=== PATIENT | female | born 1965 | race Caucasian/White ===

== ENCOUNTER 2016-05-19 21:40 | Inpatient (IN) | payer BC ==
[~2016-05-19] VITALS: Ht 165.1 cm; Wt 129.3 kg
[2016-05-19] MEDS: CitaloPRAM (CeleXA) 20 MG TAB PO SCH (21:00)
[2016-05-19] MEDS ORDERED: FENO150C PO (21:58)
[2016-05-19] MEDS ORDERED: LEVO175T2 PO (21:58)
[2016-05-19] MEDS ORDERED: CITA20TA4 PO (21:58)
[2016-05-19] MEDS ORDERED: NS 1,000 ML IV ONE ×2 (22:15→23:45)
[2016-05-19] MEDS ORDERED: ONDANSETRON 4MG/2ML VIAL (J2405) IV ONE (22:15)
[2016-05-19 22:53] LABS: BASO % 0.2 % (0.0-1.0); EOS # 0.2 K/mm3 (0.0-0.50); EOS % 2.6 % (0.0-3.0); LARGE UNSTAINED CELL # 0.1 K/mm3 (0.0-0.4); LARGE UNSTAINED CELL % 1.1 % (0.0-4.0); LYMPH # 0.5 K/mm3 (1.5-4.5); LYMPH % 4.2 % (24.0-44.0); MEAN CORPUSCULAR HGB CONC 34.3 g/dl (32.0-36.5); MEAN CORPUSCULAR VOLUME 90.5 fl (80.0-96.0); MONO # 0.2 K/mm3 (0.0-0.8); NEUTROPHILS # 8.4 K/mm3 (1.8-7.7); PLATELET COUNT, AUTOMATED 299 k/mm3 (150-450); RED CELL DISTRIBUTION WIDTH 13.5 % (11.5-14.5); WHITE BLOOD COUNT 9.3 K/mm3 (4.0-10.0)
[2016-05-19 23:08] LABS: ALBUMIN 3.9 GM/DL (3.2-5.2); ALBUMIN/GLOBULIN RATIO 0.95 (1.00-1.93); ALKALINE PHOSPHATASE 60 U/L (45-117); ALT/SGPT 47 U/L (12-78); ANION GAP 13 MEQ/L (8-16); AST/SGOT 59 U/L (15-37); BILIRUBIN,DIRECT 0.1 MG/DL (0.0-0.2); BILIRUBIN,TOTAL 0.6 MG/DL (0.2-1.0); BLOOD UREA NITROGEN 14 MG/DL (7-18); CALCIUM LEVEL 8.6 MG/DL (8.5-10.1); CARBON DIOXIDE LEVEL 21 MEQ/L (21-32); CHLORIDE LEVEL 109 MEQ/L (98-107); GLOMERULAR FILTRATION RATE > 60.0 (>51); GLUCOSE, FASTING 151 MG/DL (70-105); SODIUM LEVEL 143 MEQ/L (136-145)
[2016-05-20] MEDS ORDERED: ACETAMINOPHEN TAB 650MG DOSE (2X325MG) PO PRN (03:00)
[2016-05-20] MEDS ORDERED: ONDANSETRON 4MG/2ML VIAL (J2405) IV PRN (03:00)
--- NOTE | 2016-05-20 06:03 | HPEPDOC ---
General Date of Admission May 20, 2016 at 03:39 Other Providers Primary care provider: Akil Madison Attending Physician: OLLIE LYNNE MD Chief Complaint The patient is a 51-year-old female admitted with a reason for visit of Dehydration/Gastroenteritis Due To Norovirus. Source: Patient, RN notes reviewed Timing/Duration: This afternoon Severity: Moderate Associated Symptoms: Weakness, Dizziness History of Present Illness Ms. Barajas is a 51-year-old female who presents to [facility]'s emergency Department with vomiting and diarrhea. Past medical history significant for hypothyroidism and anxiety. Patient states that the vomiting and diarrhea began at 3 PM this afternoon. She has vomited 5 times and states that it is liquid and yellow in color. She does not note any blood. She states she has had at least 8 episodes of diarrhea that is yellow in color, watery, nonbloody, and mucoid. She denies night sweats or chills. She states that she feels warm, but has been told that she does not have a fever. She admits to diffuse crampy abdominal pain. Admits to nausea. Admits to decreased fluid intake secondary to persistent vomiting. States that it is difficult to breathe, but only when she is vomiting. Admits to one episode of feeling dizzy with acute vision loss while sitting on the toilet. Denies loss of consciousness or hitting her head. States that she did not fall. Admits to lightheadedness and weakness. States that at the end of April she developed chest congestion, cough, sinus pain and pressure and presented to her primary care provider who initially started her on a Z-Enio. States that symptoms did not improve and was subsequently switched to doxycycline with prednisone. States that she completed that regimen on and has yet to start the second round of prednisone with doxycycline. Patient denies headache, night sweats, chills, blurry vision, diplopia, tinnitus , acute hearing loss, sore throat, chest pain, palpitations, numbness and/or tingling, swelling, changes to urination (including dysuria, frequency, urgency , hematuria). Hospitalist service was consulted and patient was subsequently admitted for further medical management. Home Medications Scheduled (Fenofibrate) 150 Mg Cap 160 MG PO QHS (Reported) Citalopram Hydrobromide (Citalopram Hydrobromide) 20 Mg Tab 20 MG PO QHS ( Reported) Levothyroxine Sodium (Synthroid) 175 Mcg Tab 175 MCG PO QAM (Reported) Allergies Coded Allergies: Amoxicillin (Verified Allergy, Unknown, rash, 05/19/16) Clavulanic Acid (Verified Allergy, Unknown, rash, 05/19/16) Penicillins (Verified Allergy, Unknown, rash, 05/19/16) Past Medical History Medical History 1. Hypothyroidism 2. Anxiety Surgical History 1. Appendectomy, 1985 2. D&C, 1994 3. 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 Dyspnea Gastrointestinal: Reports: Abdominal Pain (diffuse, crampy), Diarrhea (8 episodes, yellow, watery, mucoid, nonbloody), Nausea, Vomiting (5 episodes, liquid, yellow), Denies: Constipation, Hematochezia, Melena Genitourinary: Denies: Dysuria, Frequency, Hematuria, Incontinence Hematologic: Denies: Bruising, Petecchia, Purpura Musculoskeletal: Denies: Back Pain, Joint Pain, Muscle Pain Neurological: Reports: Weakness, Denies: Confusion, Numbness Physical Examination General Exam: Positive: Alert, Cooperative, No Acute Distress Eye Exam: Positive: Conjunctiva & lids normal, EOMI, PERRLA, Negative: Ptosis, Sclera icteric ENT Exam: Positive: Atraumatic, Nares Patent, Pharynx Normal, Tongue Midline, Negative: Mucous membr. moist/pink (lips and mucous membranes are dry), Pharyngeal Edema Neck Exam: Positive: JVD, Other (trachea is midline), Supple, Negative: Lymphadenopathy, thyromegaly Chest Exam: Positive: Clear to auscultation, Normal air movement Heart Exam: Positive: Normal S1, Normal S2, Rate Normal, Regular Rhythm, Negative: Murmurs, Rubs Abdomen Exam: Positive: BS Hypoactive, Soft, Negative: Hepatospenomegaly, Mass, Tenderness Extremity Exam: Positive: Normal pulses, Negative: Clubbing, Cyanosis, Edema, Swelling, Tenderness Skin Exam: Positive: Nl turgor and temperature, Negative: Lesion, Rash Neuro Exam: Positive: Cranial Nerves 3-12 NL, Normal Gait, Normal Speech, Strength at 5/5 X4 ext Psych Exam: Positive: Anxiety (appears anxious) Other physical findings Digital rectal exam: External anal area appears without lesion, or excoriation, without visible hemorrhoids; rectal tone adequate; blind finger sweep reveals no acute abnormalities, lesions, retained stool Fecal occult stool test: Positive Vital Signs T 98.7 HR 118 RR 17 BP 149/85 O2 97% RA Height (in): 65 Weight (kg): 129.274 BMI (kg): 47.4 Laboratory Data Labs 24H Laboratory Tests 2 05/19/16 22:38: Aspartate Amino Transf (AST/SGOT) 59H, Alanine Aminotransferase (ALT/SGPT) 47, Alkaline Phosphatase 60, Total Bilirubin 0.6, Direct Bilirubin 0.1, Albumin 3.9 , Albumin/Globulin Ratio 0.95L, Anion Gap 13, White Blood Count 9.3, Red Blood Count 4.73, Hemoglobin 14.7, Hematocrit 42.8, Mean Corpuscular Volume 90.5, Mean Corpuscular Hemoglobin 31.0, Mean Corpuscular Hemoglobin Concent 34.3, Red Cell Distribution Width 13.5, Platelet Count 299, Neutrophils (%) (Auto) 90.0H, Lymphocytes (%) (Auto) 4.2L, Monocytes (%) (Auto) 2.0, Eosinophils (%) (Auto) 2.6, Basophils (%) (Auto) 0.2, Neutrophils # (Auto) 8.4H, Lymphocytes # (Auto) 0.5L, Monocytes # (Auto) 0.2, Eosinophils # (Auto) 0.2, Basophils # (Auto) 0.0, Calcium Level 8.6, Glomerular Filtration Rate > 60.0, Lactic Acid (Sepsis) 2.6*H , Large Unclassified Cells # 0.1, Large Unclassified Cells % 1.1, Lipase 99, Total Protein 8.0 CBC/BMP Laboratory Tests 05/19/16 22:38 Red Blood Count 4.73, Mean Corpuscular Volume 90.5, Mean Corpuscular Hemoglobin 31.0, Mean Corpuscular Hemoglobin Concent 34.3, Red Cell Distribution Width 13.5 , Neutrophils (%) (Auto) 90.0 H, Lymphocytes (%) (Auto) 4.2 L, Monocytes (%) ( Auto) 2.0, Eosinophils (%) (Auto) 2.6, Basophils (%) (Auto) 0.2, Neutrophils # ( Auto) 8.4 H, Lymphocytes # (Auto) 0.5 L, Monocytes # (Auto) 0.2, Eosinophils # ( Auto) 0.2, Basophils # (Auto) 0.0 Microbiology Microbiology 05/20/16 Gastrointestinal Tract Panel (PCR) - Final, Complete Norovirus RAD Interpretation STUDY: abdominal x-ray Assessment/Plan This is a 51-year-old female who presents with vomiting and diarrhea secondary to confirmed Norovirus on GI panel. Problems (1) Gastroenteritis due to norovirus Status: Acute Problem Text: GI panel positive for norovirus Nothing by mouth Intravenous fluid resuscitation 100 mLs per hour Zofran for nausea Tylenol for pain Monitor BMP (2) Tachycardia Status: Acute Problem Text: Heart rate of 118 Obtain EKG (3) Positive occult stool blood test Status: Acute Problem Text: Bedside digital rectal exam revealed stool occult blood positive Can consider outpatient colonoscopy Monitor with CBC (4) Lactic acidosis Status: Acute Problem Text: Lactic acid level 2.6 Obtain follow-up lactic acid Plan / VTE VTE Prophylaxis Ordered?: Yes (TEDs and sequentials) Plan Plan Gastroenteritis secondary to an norovirus Patient is be having diarrhea and vomiting since 3 PM Saturday afternoon. Patient's GI panel confirmed norovirus. Have initiated intravenous fluid resuscitation 100 mLs per hour. Made patient nothing by mouth. Provided Zofran as needed for nausea. Tylenol provided for pain. Monitor BMP. Tachycardia Patient's heart rate has ranged anywhere between 118-150. Will obtain EKG. Patient does not complain of chest pain, palpitations. Could likely be secondary to patient's persistent vomiting and diarrhea. Monitor with vital signs. Lactic acidosis Patient's lactic acid at time of presentation was 2.6. Likely secondary to patient's ongoing gastrointestinal pathology. We'll resuscitate with intravenous fluids at 100 mLs per hour. Obtain follow-up lactic acid level. Positive stool occult Bedside digital rectal exam revealed positive stool occult. Patient did not complain of any melena or hematochezia. Monitor with daily CBC. Patient is not currently anemic. H&H is 14.7 42.8, respectively. Could consider outpatient colonoscopy. DVT prophylaxis: TEDs and sequentials Diet: Nothing by mouth Disposition Admit to the progressive care unit Anticipated hospitalization: 2 nights Attending: Dr. Ruiz IVF: Initiate (normal saline at 100 mL per hour) Diet: Make NPO Activity: Continue Current (activity as tolerated) Diagnostics: Check Labs, Repeat Labs in AM, EKG Anticipated Discharge: Home RICKY AMARO May 20, 2016 06:02
[2016-05-20] MEDS: CitaloPRAM (CeleXA) 20 MG TAB PO SCH ×2 (06:13→10:24)
[2016-05-20] MEDS: NS 1,000 ML IV SCH ×3 (06:13→23:07)
[2016-05-20] MEDS: LEVOTHYROXINE 0.075 MG TAB (75 MCG) PO SCH (06:13)
[2016-05-20] MEDS: LEVOTHYROXINE 0.1 MG TAB (100 MCG) PO SCH (06:13)
[2016-05-20 08:00] VITALS: BP 131/63
--- NOTE | 2016-05-20 09:36 | REP ---
Abdomen series: Three views. History: Diffuse abdominal pain. Vomiting and diarrhea. Findings: Upright chest radiograph shows EKG monitoring electrodes. Lungs are clear. No infiltrate or free subdiaphragmatic air is seen. Heart is not enlarged. Supine and erect views of the abdomen show a normal bowel gas pattern. No mass, organomegaly, or pathologic calcification is seen. Impression: Negative abdominal series. Signed by Lonnie Do MD 05/20/2016 09:55 A
[2016-05-20 12:00] VITALS: BP 140/83
[2016-05-20 12:40] VITALS: BP 177/92
[2016-05-20 14:00] VITALS: BP 174/90
--- NOTE | 2016-05-20 15:12 | ECGEPIP ---
Stationary ECG Study [facility] Test Date: 2016-05-20 Pat Name: ANA M MARTINEZ Department: Room: 01[facility] Gender: F Director Dance: david : 1965 Requested By: RICKY YOUNG Order Number: [id number] Reading MD: Malachi Alicia Measurements Intervals [place] Rate: 112 P: 36 NE: 163 QRS: 4 QRSD: 86 T: 32 QT: 318 QTc: 435 Interpretive Statements SINUS TACHYCARDIA NONSPECIFIC ST & T-WAVE ABNORMALITY ABNORMAL RHYTHM ECG No prior tracing for comparison Clinical correlation advised Electronically Signed On 05-20-2016 15:11:48 EDT by Malachi Alicia
[2016-05-20 22:00] VITALS: BP 141/71
[2016-05-21] MEDS: LEVOTHYROXINE 0.1 MG TAB (100 MCG) PO SCH (05:36)
[2016-05-21] MEDS: LEVOTHYROXINE 0.075 MG TAB (75 MCG) PO SCH (05:36)
[2016-05-21 06:00] VITALS: BP 152/73
[2016-05-21 06:52] LABS: MEAN CORPUSCULAR HEMOGLOBIN 31.9 pg (27.0-33.0); MEAN CORPUSCULAR HGB CONC 34.8 g/dl (32.0-36.5); MEAN CORPUSCULAR VOLUME 91.5 fl (80.0-96.0); RED CELL DISTRIBUTION WIDTH 13.7 % (11.5-14.5); WHITE BLOOD COUNT 3.2 K/mm3 (4.0-10.0)
[2016-05-21 07:03] LABS: ANION GAP 7 MEQ/L (8-16); BLOOD UREA NITROGEN 8 MG/DL (7-18); CALCIUM LEVEL 7.1 MG/DL (8.5-10.1); CARBON DIOXIDE LEVEL 25 MEQ/L (21-32); CHLORIDE LEVEL 113 MEQ/L (98-107); CREATININE FOR GFR 0.52 MG/DL (0.55-1.02); GLOMERULAR FILTRATION RATE > 60.0 (>51); GLUCOSE, FASTING 116 MG/DL (70-105); POTASSIUM SERUM 3.3 MEQ/L (3.5-5.1); SODIUM LEVEL 145 MEQ/L (136-145)
[2016-05-21] MEDS: NS 1,000 ML IV SCH (09:11)
[2016-05-21] MEDS ORDERED: POTASSIUM CHLORIDE 10 MEQ SR TABLET PO ONE (10:45)
[2016-05-21 11:11] LABS: MAGNESIUM LEVEL 1.7 MG/DL (1.8-2.4)
[2016-05-21] MEDS ORDERED: MAG SULF 1GM/100ML (MAG RUN) 1 GM in APPROPRIATE DILUENT 1 EA IV ONE (11:30)
--- NOTE | 2016-05-24 13:02 | DSES ---
DATE OF ADMISSION: 05/20/2016 DATE OF DISCHARGE: 05/21/2016 REASON FOR ADMISSION: Dehydration, gastroenteritis. FINAL DIAGNOSES: 1. Norovirus. 2. History of hypothyroidism. 3. History of anxiety. 4. Hypokalemia. 5. Hypomagnesemia. HISTORY OF PRESENT ILLNESS: The patient is a 51-year-old female, presented to the emergency room complaining of nausea, vomiting, and diarrhea. She stated she had five episodes of vomiting liquid in color, nonbloody. She also had episodes of diarrhea, nonbloody, watery mucoid. Denied any fevers or chills. She stated she did have some lightheadedness and weakness. She did admit to increased fluid intake secondary to persistent vomiting. HOSPITAL COURSE: The patient was admitted. A gastrointestinal (GI) panel was ordered, and she was found to have norovirus. The patient was admitted for 24-48 hours. She was started on intravenous (IV) fluids for dehydration. Electrolytes were replaced, her potassium and magnesium. Once the patient's symptoms had resolved, she was discharged home. She is to followup with the primary care provider in 1 week. Diet regular. Activities as tolerated. Discharge medications include: - citalopram 20 mg at bedtime - fenofibrate 160 mg by mouth at bedtime - Synthroid 175 mcg by mouth in the morning Discharge condition stable.
== END 2016-05-21 14:20 | disposition home or self-care (01) | DRG 249 ==
LOC: M ED 22:30 → M ED INP 05-20 03:39 → M MSPAV 05-20 12:31
PROVIDERS: ADMIT Internal Medicine; ATTEND Internal Medicine
DX: A08.11 Acute gastroenteropathy due to Norwalk agent (principal); E87.0 Hyperosmolality and hypernatremia; E86.0 Dehydration; E03.9 Hypothyroidism, unspecified; F41.9 Anxiety disorder, unspecified; R00.0 Tachycardia, unspecified; Z88.0 Allergy status to penicillin; Z88.8 Allergy status to other drugs, medicaments and biological substances; Z79.899 Other long term (current) drug therapy; Z87.891 Personal history of nicotine dependence